=== PATIENT | female | born 1955 | race Caucasian/White ===

== ENCOUNTER 2016-12-19 08:06 | Emergency (ER) | payer OTHER ==
[~2016-12-19] VITALS: Ht 152.4 cm; Wt 71.7 kg
[~2016-12-19 08:06] MED LIST: KEFLEX500 MG PO; KLOR-CON20 ME1 PO; LEVOTHYROXINE50 MCG PO; VALIUM2 M1 PO
--- NOTE | 2016-12-19 09:16 | ED DYSPNEA/ASTHMA COMPLAINT ---
History of Present Illness General Chief Complaint: Upper Respiratory Sx/Fever Stated Complaint: COUGH, FEVER, X 5 DAYS Source: patient Exam Limitations: no limitations Vital Signs & Intake/Output Vital Signs & Intake/Output Vital Signs Date Time Temp Pulse Resp B/P B/P Pulse O2 O2 Flow FiO2 Mean Ox Delivery Rate 12/19 1005 96.8 80 18 104/54 98 Room Air 12/19 0902 98 12/19 0832 98 Room Air 12/19 0810 98.8 83 18 117/72 97 Room Air Room Air Allergies Coded Allergies: indomethacin (Severe, HIVES 02/28/16) morphine (HIVES 02/28/16) Reconcile Medications Azithromycin (Zithromax Tri-Ge) 500 MG TABLET 1 TAB PO DAILY ACUTE BRONCHITIS . Brompheniramine/Pseudoephed/Dm (Bromfed Dm Cough Syrup) 2 MG-30 MG-10 MG/5 ML SYRUP 5-10 ML PO Q4-6 PRN PRN COUGH AND COLD Diazepam (Valium) 2 MG TABLET 1 TAB PO QHS ANXIETY Levothyroxine Sodium 50 MCG TABLET 1 TAB PO DAILY THYROID (Reported) Potassium Chloride (Klor-Con) 20 MEQ PACKET 1 TAB PO DAILY HYPOKALEMIA Triage Note: TRIAGE: 61 Y/O FEMALE PRESENTS C/O COUGH, FEVER X5 DAYS. AFEBRILE: 98.8 IN TRIAGE. LAST DOSE ADVIL AT [id number] THIS MORNING. ALSO TOOK THERAFLU. Triage Nurses Notes Reviewed? yes HPI: 61-year-old female with past medical history of asthma and hypothyroidism, is here because of 5 day history of sore throat, cough with green brown sputum production, chest pressure/pain, more on coughing/breathing in deep, and a fever with maximum 101F . Also admits to nasal congestion and change in voice. She is able to speak in full sentences, and walk on level ground without difficulty. She denies any recent travel, sick contacts, leg swelling, palpitations, sweating, nausea, vomiting. (CARIN LIPSCOMB,BERNARD) Past History Travel History Traveled to [place] past 21 day No Medical History Any Pertinent Medical History? see below for history Neurological: NONE EENT: NONE Cardiovascular: NONE Respiratory: asthma Gastrointestinal: NONE Hepatic: NONE Renal: NONE Musculoskeletal: NONE Psychiatric: NONE Endocrine: hypothyroidism Blood Disorders: NONE Cancer(s): NONE [employer]/Reproductive: NONE Surgical History Surgical History: cervical fusion Psychosocial History Who do you live with Son Services at Home None What is your primary language [place] Tobacco Use: Current Daily Use Daily Tobacco Use Amount/Type: => 5 Cigarettes daily ETOH Use: occasional use Illicit Drug Use: denies illicit drug use Family History Hx Contributory? No (BERNARD DEL ROSARIO MD) Review of Systems Review of Systems Constitutional: Reports: fever. EENTM: Reports: no symptoms. Respiratory: Reports: cough, short of breath, sputum production, wheezing. Denies: hemoptysis, orthopnea, stridor. Cardiovascular: Reports: chest pain (and pressure central). GI: Reports: no symptoms. Genitourinary: Reports: no symptoms. Musculoskeletal: Reports: no symptoms. Skin: Reports: no symptoms. Neurological/Psychological: Reports: no symptoms. Hematologic/Endocrine: Reports: no symptoms. All Other Systems: Reviewed and Negative (BERNARD DEL ROSARIO MD) Physical Exam Physical Exam General Appearance: well developed/nourished, no apparent distress, alert, awake , comfortable Head: atraumatic, normal appearance Eyes: Bilateral: normal appearance. Ears, Nose, Throat: normal pharynx, normal ENT inspection, hearing grossly normal, no sinus tenderness Neck: normal inspection, supple, full range of motion Respiratory: chest non-tender, no respiratory distress, lungs clear, except for mild occassional wheeze, no crackles Cardiovascular: regular rate/rhythm Gastrointestinal: normal bowel sounds, soft, non-tender, no organomegaly Extremities: normal inspection, normal capillary refill Neurologic/Psych: no motor/sensory deficits, awake, alert, oriented x 3, normal gait Skin: intact, normal color, warm/dry Lymphatic: no anterior cervical beth Core Measures ACS in differential dx? No Severe Sepsis Present: No Septic Shock Present: No (BERNARD DEL ROSARIO MD) Progress Differential Diagnosis: asthma, bronchitis, CHF, pneumonia, pneumothorax Plan of Care: Orders Procedure Date/time Status TROPONIN LEVEL 12/20 851 Active COMPREHENSIVE METABOLIC PANEL 12/20 851 Active CBC WITHOUT DIFFERENTIAL 12/20 851 Active EKG 12/20 851 Active TRC EVALUATION (GEN) 12/19 0847 Active CXR Impression: no acute abnormality Initial ED EKG: Patient denied EKG and lab tests Comments: Patient refused EKG and blood tests, even after explaining the necessity to rule out severe infection, heart condition, among others. Her vitals are stable, and she received a breathing treatment while in the emergency department. She wishes to be discharged on oral medications. (BERNARD DEL ROSARIO MD) Departure Departure Disposition: HOME OR SELF CARE Condition: Stable Clinical Impression Primary Impression: Acute bronchitis Qualifiers: Bronchitis organism: unspecified organism Qualified Code: J20.9 - Acute bronchitis, unspecified Referrals: FRANCIS LIPSCOMB,CONRAD Campos (PCP/Family) Additional Instructions: Please return to emergency if she experienced increased shortness of breath, chest pain, high fever. Departure Forms: Customer Survey General Discharge Information Prescriptions: Current Visit Scripts Brompheniramine/Pseudoephed/Dm (Bromfed Dm Cough Syrup) 5-10 ML PO Q4-6 PRN PRN COUGH AND COLD #240 ML Azithromycin (Zithromax Tri-Ge) 1 TAB PO DAILY #3 TAB . (BERNARD DEL ROSARIO MD) Resident Co-Sign Statement Statement: ED Attending supervision documentation- [x] I saw and evaluated the patient. I have also reviewed all the pertinent lab results and diagnostic results. I agree with the findings and the plan of care as documented in the Resident's documentation. [] I have reviewed the ED Record and agree with the Resident's documentation. [] Additions or exceptions (if any) to the Resident's note and plan are summarized below: [] (MAYO LIPSCOMB,ZEB Coleman) Critical Care Note Critical Care Note Critical Care Time: non-applicable Comments: Patient's vitals are stable, blood pressure in the lower side but she is asymptomatic and wishes to leave on oral medications. (BERNARD DEL ROSARIO MD)
--- NOTE | 2016-12-19 09:52 | RADIOLOGY REPORT ---
EXAMINATION: XR CHEST 2 VIEWS CLINICAL INFORMATION: Shortness of breath, productive cough and chest pain; question pneumonia. COMPARISON: Prior chest radiographs, most recently 02/28/2016; CTA thorax dated 06/07/2013. TECHNIQUE: Frontal and lateral views of the chest were obtained. FINDINGS: The heart, great vessels, pulmonary vasculature and mediastinum are normal. The lungs show no focal infiltrate, effusion or pneumothorax. There is no acute osseous abnormality. There is a mild thoracic dextroscoliosis with spondylosis. Cervicothoracic orthopedic hardware is noted. IMPRESSION: No active cardiopulmonary disease.
[2016-12-19] MEDS ORDERED: ZITHROMAX TRI-500 M1 PO ×2 (10:02→10:14)
[2016-12-19 10:05] VITALS: BP 104/54
[2016-12-19] MEDS ORDERED: BROMFED DM COU118 M1 PO (10:13)
== END 2016-12-19 10:44 ==
LOC: ERH 08:06
DX: J20.9 Acute bronchitis, unspecified (principal); Z72.0 Tobacco use; R07.89 Other chest pain
CPT/HCPCS: 1263